=== PATIENT | female | born 1995 | race Caucasian/White ===

== ENCOUNTER 2021-05-29 11:52 | Emergency (ER) | payer OTHER ==
[2021-05-29] MEDS ORDERED: Sodium Chloride 0.9% 10 ML Syringe FLUSH PRN ×2 (12:52)
[2021-05-29] MEDS ORDERED: Acetaminophen 325 MG Tab PO ONE (13:51)
== END 2021-05-29 15:55 | disposition home or self-care (01) ==
LOC: JP.ED 11:52
DX: R56.9 Unspecified convulsions (principal); Z72.0 Tobacco use
CPT/HCPCS: 36415; 70450; 80053; 83605; 84703; 85025; 93005; 93010; 99282; 99285; A9270

== ENCOUNTER 2021-08-29 01:01 | Emergency (ER) | payer OTHER ==
[2021-08-29] MEDS ORDERED: HYDROmorphone 1 MG/ML Syringe IM ONE (01:39)
[2021-08-29] MEDS ORDERED: Ketorolac 10 MG Tab PO ONE (01:39)
== END 2021-08-29 02:04 | disposition home or self-care (01) ==
LOC: JP.ED 01:01
DX: O03.4 Incomplete spontaneous abortion without complication (principal); F17.210 Nicotine dependence, cigarettes, uncomplicated
CPT/HCPCS: 36415; 85025; 96372; 99281; 99284; A9270-GY; J1170

== ENCOUNTER 2022-05-20 17:24 | Inpatient (IN) | payer MEDICAID, OTHER ==
[2022-05-20] MEDS ORDERED: Sodium Chloride 0.9% 10 ML Syringe FLUSH PRN (18:13)
[2022-05-20] MEDS ORDERED: Ondansetron 4 MG/2 ML SDV IVPUSH ONE (18:13)
[2022-05-20] MEDS ORDERED: Sodium Chloride 0.9% 1,000 ML IV STA (18:13)
[2022-05-20] MEDS ORDERED: Ketorolac 30 MG/ML SDV IVPUSH ONE (18:13)
[2022-05-20] MEDS ORDERED: Sodium Chloride 0.9% 50 ML IV SCH (19:00)
[2022-05-20] MEDS ORDERED: Iopamidol 612 MG/ML 100 ML Bottle IV SCH (19:00)
[2022-05-20 19:26] LABS: ESTIMATED GFR 103 mL/min (>60)
[2022-05-20] MEDS ORDERED: Diazepam 2 MG Tab PO PRN ×2 (20:56→21:24)
[2022-05-20] MEDS ORDERED: Amphetamine/Dextroamphetamine Salts 10 MG Tab PO SCH (21:00)
[2022-05-20] MEDS: Sodium Chloride 0.9% 1,000 ML IV SCH (21:05)
[2022-05-20] MEDS: fentaNYL 50 MCG/ML SDV IVPUSH PRN ×2 (21:32→23:20)
[2022-05-20] MEDS: Ondansetron 4 MG/2 ML SDV IV PRN (23:26)
[2022-05-21] MEDS: HYDROmorphone 1 MG/ML Syringe IVPUSH PRN ×10 (01:23→23:02)
[2022-05-21] MEDS: Sodium Chloride 0.9% 1,000 ML IV SCH ×2 (01:25→05:11)
[2022-05-21] MEDS: Amphetamine/Dextroamphetamine Salts 10 MG Tab PO SCH ×2 (05:09→10:50)
[2022-05-21] MEDS ORDERED: Sodium Chloride 0.9% 1,000 ML IV SCH (09:30)
[2022-05-21] MEDS: Ondansetron 4 MG/2 ML SDV IV PRN (09:42)
[2022-05-21] MEDS: Escitalopram 20 MG Tab PO SCH (10:50)
[2022-05-21] MEDS: Prenatal Multivitamin with Calcium/Folic Acid/Iron Tab PO SCH (10:50)
[2022-05-21] MEDS: Metoprolol Tartrate 25 MG Tab PO SCH (20:52)
[2022-05-22] MEDS: HYDROmorphone 1 MG/ML Syringe IVPUSH PRN ×5 (01:06→10:10)
[2022-05-22] MEDS ORDERED: hydrALAZINE 20 MG/ML SDV ONE (03:21)
[2022-05-22] MEDS ORDERED: hydrALAZINE 20 MG/ML SDV IVPUSH PRN (05:33)
[2022-05-22] MEDS: Amphetamine/Dextroamphetamine Salts 10 MG Tab PO SCH ×2 (05:42→10:12)
[2022-05-22 08:07] LABS: ESTIMATED GFR 125 mL/min (>60)
[2022-05-22] MEDS: Metoprolol Tartrate 25 MG Tab PO SCH (10:06)
[2022-05-22] MEDS: Escitalopram 20 MG Tab PO SCH (10:12)
[2022-05-22] MEDS: Prenatal Multivitamin with Calcium/Folic Acid/Iron Tab PO SCH (10:12)
== END 2022-05-22 11:05 | disposition home or self-care (01) | DRG 439 ==
LOC: JP.ED 17:24 → JP.MS 20:54
PROVIDERS: ADMIT Family Medicine; ATTEND Family Medicine
DX: K85.00 Idiopathic acute pancreatitis without necrosis or infection (principal); E87.1 Hypo-osmolality and hyponatremia; K75.81 Nonalcoholic steatohepatitis (NASH); H54.7 Unspecified visual loss; Z20.822 Contact with and (suspected) exposure to COVID-19; M54.9 Dorsalgia, unspecified; G89.29 Other chronic pain; F41.0 Panic disorder [episodic paroxysmal anxiety]; F43.10 Post-traumatic stress disorder, unspecified; F17.200 Nicotine dependence, unspecified, uncomplicated; Z98.890 Other specified postprocedural states; Z79.899 Other long term (current) drug therapy
CPT/HCPCS: 36415; 74177; 76705; 76705-26; 80048; 80053; 80061; 80307; 81001; 83605; 83690; 84484; 84703; 85025; 96361; 96374; 96375; 99221; 99238; 99284; 99285-25; A9270-GY; J0360; J1170; J1885; J2405; J3010; J3490; J7030; Q9967; U0002